=== PATIENT | male | born 1955 | race Caucasian/White ===

== ENCOUNTER → 2016-10-13 | Outpatient (CLI) | payer BC | END | disposition short-term general hospital (02) | LOC: CLSURG 07:57 | DX: K40.90 Unilateral inguinal hernia, without obstruction or gangrene, not specified as recurrent (principal) ==

== ENCOUNTER 2016-10-20 07:38 | Day surgery (SDC) | payer BC ==
[~2016-10-20] VITALS: Ht 172.7 cm; Wt 78.9 kg
== END 2016-10-20 12:05 | disposition short-term general hospital (02) ==
LOC: SURGOP 07:38
PROC: 0YU50JZ Supplement Right Inguinal Region with Synthetic Substitute, Open Approach (ICD-10-PCS; principal; 2016-10-20)
DX: K40.90 Unilateral inguinal hernia, without obstruction or gangrene, not specified as recurrent (principal); L30.9 Dermatitis, unspecified; N40.0 Benign prostatic hyperplasia without lower urinary tract symptoms; K21.9 Gastro-esophageal reflux disease without esophagitis; I10 Essential (primary) hypertension; F17.220 Nicotine dependence, chewing tobacco, uncomplicated; Z79.899 Other long term (current) drug therapy; Z90.49 Acquired absence of other specified parts of digestive tract; Z82.49 Family history of ischemic heart disease and other diseases of the circulatory system; Z83.3 Family history of diabetes mellitus; Z80.41 Family history of malignant neoplasm of ovary
CPT/HCPCS: C1781; J0690; J2250; J3010

== ENCOUNTER → 2016-10-27 | Outpatient (CLI) | payer BC | END | disposition short-term general hospital (02) | LOC: CLSURG 08:03 | DX: Z48.815 Encounter for surgical aftercare following surgery on the digestive system (principal) ==